=== PATIENT | female | born 1940 | race Two or more races ===

== ENCOUNTER 2020-03-19 13:52 | Emergency (ER) | payer OTHER, BC ==
[~2020-03-19] VITALS: Ht 152.4 cm; Wt 67.1 kg
[2020-03-19] MEDS ORDERED: PRILOSEC 40MG (14:07)
[2020-03-19] MEDS ORDERED: LYRICA150 MG (14:08)
[2020-03-19] MEDS ORDERED: SYNTHROID125 MCG (14:12)
[2020-03-19] MEDS ORDERED: PRILOSEC OTC20 MG (14:13)
[2020-03-19] MEDS ORDERED: TRAMADOL HCL50 MG PO (15:08)
== END 2020-03-19 17:26 | disposition home or self-care (01) ==
LOC: ER 13:52
DX: S42.222A 2-part displaced fracture of surgical neck of left humerus, initial encounter for closed fracture (principal); W01.198A Fall on same level from slipping, tripping and stumbling with subsequent striking against other object, initial encounter; Y93.89 Activity, other specified; Y92.89 Other specified places as the place of occurrence of the external cause; Y99.8 Other external cause status